=== PATIENT | female | born 1980 | race Caucasian/White ===

== ENCOUNTER 2018-08-13 09:31 | Emergency (ER) | payer OTHER ==
[~2018-08-13] VITALS: Ht 157.5 cm; Wt 70.3 kg
[2018-08-13] MEDS ORDERED: CYCLOBENZAPRINE10 MG PO (09:38)
[2018-08-13] MEDS ORDERED: ALEVE220 MG PO (09:38)
[2018-08-13] MEDS ORDERED: METHYLPREDNISOLO4 M1 PO (10:27)
[2018-08-13] MEDS ORDERED: METHOCARBAMOL500 MG PO (10:27)
[2018-08-13] MEDS ORDERED: DIAZEPAM5 MG PO (11:41)
== END 2018-08-13 12:15 | disposition home or self-care (01) ==
LOC: ED 09:31
DX: M54.41 Lumbago with sciatica, right side (principal); K21.9 Gastro-esophageal reflux disease without esophagitis; Z90.89 Acquired absence of other organs; Z88.1 Allergy status to other antibiotic agents
CPT/HCPCS: 96372; 99283-25; J1100; J1885

== ENCOUNTER 2021-03-02 14:30 | Emergency (ER) | payer OTHER ==
[~2021-03-02] VITALS: Ht 157.5 cm; Wt 81.5 kg
[~2021-03-02 14:30] MED LIST: ALEVE220 MG PO; CYCLOBENZAPRINE10 MG PO; DIAZEPAM5 MG PO; METHOCARBAMOL500 MG PO; METHYLPREDNISOLO4 M1 PO
[2021-03-02] MEDS ORDERED: CYMBALTA30 MG PO (15:10)
[2021-03-02] MEDS ORDERED: METOPROLOL SUCC25 MG PO (15:10)
[2021-03-02] MEDS ORDERED: BACLOFEN10 MG PO (15:12)
[2021-03-02] MEDS ORDERED: LYRICA20 MG/1 ML PO (15:12)
[2021-03-02] MEDS ORDERED: DULOXETINE HCL30 MG PO (15:15)
== END 2021-03-02 17:57 | disposition home or self-care (01) ==
LOC: ED 14:30
DX: S63.502A Unspecified sprain of left wrist, initial encounter (principal); S43.402A Unspecified sprain of left shoulder joint, initial encounter; V80.010A Animal-rider injured by fall from or being thrown from horse in noncollision accident, initial encounter; K21.9 Gastro-esophageal reflux disease without esophagitis; Z88.1 Allergy status to other antibiotic agents; Z79.899 Other long term (current) drug therapy
CPT/HCPCS: 73030; 73110; 99283-25